=== PATIENT | female | born 2005 | race Hispanic/Latino ===

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

== ENCOUNTER 2024-09-04 06:21 | Emergency (ER) | payer OTHER ==
--- OUTSIDE RECORDS SUMMARY | 2024-09-04 06:25 | XMS REPORT | Continuity of Care Document ---
Author Name Unknown Address [address] [address] [place] [address] [facility] Address [address] [facility] [address] [place] [address] Care Team Providers Care Conveyor Mechanic Name Role Phone Poncho Lobo Primary Care Physician [phone] RADHIKA MCNAMARA Attending Clinician Unavailable RADHIKA MCNAMARA Attending Clinician Unavailable Radhika Mcnamara MD Attending Clinician [phone] Pob, Adc Lab Main Attending Clinician Unavailabl e PAO ALONSO Attending Clinician Unavail able Celeste WHPao FAIRCHILD Attending Clinician + ELEANOR JOHNSON Attending Clinician Unavailable Eleanor Jamison Attending Clinician [phone] BETY GUTIERREZ Attending Clinician Unavailable Poncho Lobo Attending Clinician [phone] PONCHO LOBO Attending Clinician Unavailable Payers Payer Name Policy Type Policy Number Effective Date Expirati on Date Source [employer] [place] [id number] 2024 00:00:00 Problems Condition Name Condition Details Condition Category Status Onset Date Resolution Date Last Treatment Date Treating Clinician Comments Source UTI in UTI in Disease Active 08-04 00:00: 00 Overview: Formattin g of this note might be different from the original. Pending sayra [facility] Supervisio n of high-risk Supervisio n of high-risk Disease Active 07-29 00:00: 00 [facility] Multiparit y Multiparit y Disease Active 07-29 00:00: 00 [facility] Obesity in Obesity in Disease Active 07-29 00:00: 00 [facility] No known active problems No known active problems Disease [facility] Allergies, Adverse Reactions, Alerts Allergy Name Allergy Type Status Severity Reaction(s) Onset Date Inactive Date Treating Clinician Comments Source NO KNOWN ALLERGIE S Drug Class Active [facility] Social History Social Habit Start Date Stop Date Quantity Comments Source ASSERTION 2024-04-26 00:00:00 [facility] Exposure to SARS-CoV-2 (event) Unable to assess [facility] of Social function 2024-08-19 00:00:00 2024-08-19 00:00:00 [facility] Alcoholic beverage intake 2024-08-19 00:00:00 2024-08-19 00:00:00 Ex-drinker (finding) [facility] Alcohol intake 2014-03-18 00:00:00 2014-03-18 00:00:00 [facility] Sex assigned at 2003 00:00:00 2005 00:00:00 [facility] Smoking Status Start Date Stop Date Source Never smoked tobacco [facility] Medications Ordered Medication Name Filled Medication Name Start Date Stop Date Current Medication? Ordering Clinician Indication Dosage Frequency Signature (SIG) Comments Components Source Nitrofurant oin&Nit. Macrocryst 100 mg capsule 2023-11 00:00: 00 Yes [id number] 100mg Take 1 capsule by mouth in the morning and 1 capsule in the evening. [facility] vit,calc76/ iron/folic (PNV 29-1 ORAL) 2023-11 14:48: 16 Yes Take by mouth. [facility] Nitrofurant oin&Nit. Macrocryst (MACROBID) 100 mg capsule 08-04 00:00: 00 08-15 04:59 :00 Yes [id number] 100mg Take 1 capsule by mouth in the morning and 1 capsule in the evening. Do all this for 10 days. [facility] NaCl 0.9% (NS) bolus infusion 1,000 mL 2020-11 23:30: 00 11-08 00:25 :00 No 1000mL at 999 mL/hr, 1,000 mL, IV Infusion, ONCE, 1 dose, On Sun11/07/21 at 1730, STAT [facility] acetaminoph en (TYLENOL) tablet 1,000 mg 2020-11 23:30: 00 11-07 23:30 :00 No 1000mg 1,000 mg, Oral, ONCE, 1 dose, On Sun11/07/21 at 1730, Routine [facility] proMETHazin e (PHENERGAN) 25 mg in NaCl 0.9% (NS) 50 mL piggyback 2020-11 23:30: 00 11-07 22:32 :00 No 25mg 25 mg, IV Piggyback, ONCE, 1 dose, On Sun11/07/21 at 1730, 50 mL [facility] No known medications 2020-11 16:10: 41 No [facility] No known medications No Un hua [facility] No known medications No Un hua [facility] Vital Signs Vital Name Observation Time Observation Value Comments S beth Systolic blood pressure 2024-08-19 19:35:00 121 mm[Hg] [facility] Diastolic blood pressure 2024-08-19 19:35:00 84 mm[Hg] [facility] Heart rate 2024-08-19 19:35:00 108 /min [facility] Respiratory rate 2024-08-19 19:35:00 18 /min [facility] Body height 2024-08-19 19:35:00 167.6 cm [facility] Body weight 2024-08-19 19:35:00 90.266 kg [facility] BMI 2024-08-19 19:35:00 32.12 kg/m2 [facility] Systolic blood pressure 2024-07-29 14:20:00 105 mm[Hg] [facility] Diastolic blood pressure 2024-07-29 14:20:00 76 mm[Hg] [facility] Heart rate 2024-07-29 14:20:00 101 /min [facility] Body temperature 2024-07-29 14:20:00 36.78 Peri [facility] Body height 2024-07-29 14:20:00 167.6 cm [facility] Body weight 2024-07-29 14:20:00 89.177 kg [facility] BMI 2024-07-29 14:20:00 31.73 kg/m2 [facility] Systolic blood pressure 2021-11-08 01:37:00 103 mm[Hg] [facility] Diastolic blood pressure 2021-11-08 01:37:00 57 mm[Hg] [facility] Heart rate 2021-11-08 01:37:00 77 /min [facility] Respiratory rate 2021-11-08 01:37:00 21 /min [facility] Oxygen saturation in Arterial blood by Pulse oximetry 2021-11-08 01:37:00 100 /min [facility] Body temperature 2021-11-07 21:42:00 37.28 Peri [facility] Body weight 2021-11-07 21:42:00 70.035 kg [facility] Procedures Procedure Date / Time Performed Performing Clinicia n Source POCT URINALYSIS W/O SPECIFIC GRAVITY 2024-08-19 00:00:00 Radhika Mcnamara [facility] POCT URINALYSIS W/O SPECIFIC GRAVITY 2024-07-29 14:15:00 Pao Alonso [facility] POCT TEST 2024-07-29 14:14:00 Stanley Alonso [facility] URINALYSIS 2021-11-08 00:33:00 Eleanor Johnson [facility] LIPASE 2021-11-07 22:30:00 Eleanor Johnson [facility] COMP. METABOLIC PANEL (56550) 2021-11-07 22:30:00 Eleanor Johnson [facility] CBC WITH DIFF 2021-11-07 22:30:00 Eleanor Johnson [facility] RAPID INFLUENZA A/B 2021-11-07 22:30:00 Eleanor Johnson [facility] COVID-19 (ID NOW RAPID TESTING) 2021-11-07 22:30:00 Eleanor Johnson [facility] CONSENT/REFUSAL FOR DIAGNOSIS AND TREATMENT 2021-11-07 21:40:18 Doctor Unassigned, [place] [facility] XR SCOLIOSIS SURVEY 2 2021-05-27 20:32:47 Yamil [facility] XR SCOLIOSIS SURVEY 2 2021-05-27 20:32:47 Yamil [facility] NOTICE OF PRIVACY PRACTICES 2021-05-27 19:48:34 Doctor Unassigned, [place] [facility] CONSENT/REFUSAL FOR DIAGNOSIS AND TREATMENT 2021-05-27 19:48:21 Doctor Unassigned, [place] [facility] ASSIGNMENT OF BENEFITS 2021-05-27 19:48:00 Docto r Unassigned, [place] [facility] Encounters Start Date/Time End Date/Time Encounter Type Admission Type Attending [facility] Care Facility Care Department Encounter ID Source 2024-09-02 00:00:00 2024-09-02 16:28:54 Telephone AdumRadhika [facility] 1..114 350.1.13.10 4.2.7.2.686 [id number] [facility] 2024-08-28 00:00:00 2024-08-28 15:16:41 Telephone AdumRadhika [facility] 1.84.114 350.1.13.10 4.2.7.2.686 [id number] [facility] 2024-08-28 14:30:00 2024-08-28 14:30:00 Outpatient R RADHIKA MCNAMARA [facility] [id number] [facility] 2024-08-28 00:00:00 2024-08-28 13:58:15 Telephone AdRadhika reyes [facility] [id number] 350.1.13.10 4.2.7.2.686 [id number] [facility] 2024-08-27 16:00:00 2024-08-27 16:15:00 Whitesmith Visit Pob, Adc Lab Main AdumRadhika Derek Pob, Adc Lab Main [facility] [id number] 350.1.13.10 4.2.7.2.686 [id number] [facility] 2024-08-27 16:00:00 2024-08-27 16:00:00 Outpatient R RADHIKA MCNAMARA [facility] [id number] [facility] 2024-08-26 00:00:00 2024-08-26 06:00:37 Case Management ManoloRadhika reyes [facility] [id number] 350.1.13.10 4.2.7.2.686 [id number] [facility] 2024-08-20 15:00:00 2024-08-20 15:00:00 Outpatient R ADRADHIKA REYES [facility] [id number] [facility] 2024-08-19 14:30:00 2024-08-19 15:18:14 Outpatient R ADRADHIKA REYES [facility] [id number] [facility] 2024-08-19 14:30:00 2024-08-19 15:18:14 Initial Visit Radhika Mcnamara [facility] 1..114 350.1.13.10 4.2.7.2.686 [id number] [facility] 2024-08-04 00:00:00 2024-08-04 15:42:51 Telephone Pao Alonso [facility] 1..114 350.1.13.10 4.2.7.2.686 [id number] [facility] 2024-07-31 00:00:00 2024-07-31 15:11:28 Abstract Pao Alonso [facility] 1..114 350.1.13.10 4.2.7.2.686 [id number] [facility] 2024-07-29 09:00:00 2024-07-29 10:32:45 Outpatient R PAO ALONSO [facility] [id number] [facility] 2024-07-29 09:00:00 2024-07-29 10:32:45 Initial Visit Pao Alonso [facility] 1..114 350.1.13.10 4.2.7.2.686 [id number] [facility] 2024-07-04 14:30:00 2024-07-04 14:30:00 Outpatient R RADHIKA MCNAMARA [facility] [id number] [facility] 2024-07-01 00:00:00 2024-07-01 13:39:11 Telephone Radhika Mcnamara [facility] 1..114 350.1.13.10 4.2.7.2.686 [id number] [facility] 2021-11-07 15:44:00 2021-11-07 20:30:00 Emergency X ELEANOR JOHNSON [facility] ERT [id number] [facility] 2021-11-07 15:44:00 2021-11-07 20:30:00 Emergency Eleanor Johnson [facility] [id number] 350.1.13.10 4.2.7.2.686 [id number] [facility] 2021-10-03 10:30:00 2021-10-03 10:30:[address] [facility] [id number] [facility] 2021-08-15 10:45:00 2021-08-15 10:45:[address] [facility] [id number] [facility] 2021-05-27 15:13:09 2021-05-27 23:59:00 [facility] [id number] 350.1.13.10 4.2.7.2.686 [id number] [facility] 2021-05-27 14:45:00 2021-05-27 15:12:00 Hospital Encounter Yamil [facility] [id number] 350.1.13.10 4.2.7.2.686 [id number] [facility] 2021-05-27 00:00:00 2021-05-27 15:12:00 Outpatient R YAMIL [facility] [id number] [facility] Results Test Description Test Time Test Comments Results Result Co mments Source [facility] [id number] 14:15:00* Test Item Value Reference Range Interpretation Comme nts POCT PREG (test code = 1605) Positive On board controls acceptable with C Line (test code = 3574) Yes POCT PREG LOT # (test code = 3575) POCT PREG TEST DATE ( test code = 3576) [facility] Ur[facility] w/o Specific [id number] 14:15:00* Test Item Value Reference Range Interpretation Comme nts POCT PH U (test code = 3254) 5 mg/dl 5-8 POCT U LEUK EST (test code = 3263) 1 Negative - Negative POCT U NIT (test code = 3262) negative Negative - Negati ve POCT U PROT (test code = 3259) trace Negative - Negat silvina POCT U GLU (test code = 3256) negative Negative - Negati ve POCT U KETONE (test code = 3258) negative Negative - Neg ative POCT U BLD (test code = 3257) trace Negative - Negati ve [facility]. METABOLIC PANEL (34482)2021-11-07 23:07:15* Test Item Value Reference Range Interpretation Comme nts NA (test code = 8330490779) 136 mmol/L 135-145 K (test code = 8057137475) 3.7 mmol/L 3.5-5.0 CL (test code = 6082659544) 105 mmol/L 98-108 CO2 TOTAL (test code = 9016163278) 20 mmol/L 23-31 L AGAP (test code = 2625545313) 2-16 BUN (test code = 1899527619) 5 mg/dL 7-23 L GLUCOSE (test code = 6718852453) 99 mg/dL 70-110 CREATININE (test code = 0881117024) 0.40 mg/dL 0.50-1.04 L TOTAL BILI (test code = 4913427392) 0.6 mg/dL 0.1-1.1 CALCIUM (test code = 8175133858) 9.1 mg/dL 8.6-10.6 T PROTEIN (test code = 7676187760) 8.0 g/dL 6.3-8.2 ALBUMIN (test code = 7849846659) 4.5 g/dL 3.5-5.0 ALK PHOS (test code = 5028531764) 56 U/L 34-122 ALTv (test code = 1742-6) 17 U/L 5-35 AST(SGOT) (test code = 4098643609) 21 U/L 13-40 eGFR (test code = 0298868716) mL/min/1.73m2 THEODORE (test code = THEODORE) Association of Glomerular Filtration Rate (GFR) and Staging of Kidney Disease* + --+ --+ ------+| GFR (mL/min/1.73 m2) ?| With Kidney Damage ?| ?Without Kidney Damage+ --------+ --------+ +| ?>90 ?| ?Stage one ?| ? Normal ?+ ---+ ---+ -------+| ?60-89 ?| ?Stage two ?| ? Decreased GFR ? + --+ --+ ------+| ?30-59 ?| ?Stage three ?| ? Stage three ? + --+ --+ ------+| ?15-29 ?| ?Stage four ? | ? Stage four ?+ ---+ ---+ -------+| ?<15 (or dialysis) ? ?| ?Stage five ? | ? Stage five ?+ ---+ ---+ -------+ *Each stage assumes the associated GFR [...] imaging tests). Lab Interpretation (test code = 73653-3) [facility]normal [facility] 23:06:54* Test Item Value Reference Range Interpretation Comme nts LIPASE (test code = 9260131451) 105 U/L 0-220 Lab Interpretation (test cod e = 79275-3) Normal [facility] WITH [id number] 22:47:49* Test Item Value Reference Range Interpretation Comme nts WBC (test code = 6690-2) See_Comment [Automated [employer]] The system which generated this result transmitted reference range: 4.50 - 13.50 10*3/?L. The reference range was not used to interpret this result as normal/abnormal. RBC (test code = 789-8) See_Comment [Automated [employer]] The system which generated this result transmitted reference range: 4.10 - 5.10 10*6/?L. The reference range was not used to interpret this result as normal/abnormal. HGB (test code = 718-7) 13.8 g/dL 12.0-16.0 HCT (test code = 4544-3) 39.9 % 36.0-45.0 MCV (test code = 787-2) 85.6 fL 78.0-95.0 MCH (test code = 785-6) 29.6 pg 26.0-32.0 MCHC (test code = 786-4) 34.6 g/dL 32.0-36.0 RDW-SD (test code = 66620-3) 39.1 fL 38.5-49.0 RDW-CV (test code = 788-0) 12.5 % 11.5-14.0 PLT (test code = 777-3) See_Comment [Automated [employer]] The system which generated this result transmitted reference range: 135 - 361 10*3/?L. The reference range was not used to interpret this result as normal/abnormal. MPV (test code = 13029-0) 11.7 fL 9.4-13.3 NRBC/100 WBC (test code = 9971637685) See_Comment [Automated [employer]] The system which generated this result transmitted reference range: 0.0 - 10.0 /100 WBCs. The reference range was not used to interpret this result as normal/abnormal. NRBC x10^3 (test code = 2865262792) <0.01 See_Comment [Automated [employer]] The system which generated this result transmitted reference range: 10*3/?L. The reference range was not used to interpret this result as normal/abnormal. GRAN MAT (NEUT) % (test code = 770-8) 73.0 % IMM GRAN % (test code = 9001403851) 0.30 % LYMPH % (test code = 736-9) 15.6 % MONO % (test code = 5905-5) 10.4 % EOS % (test code = 713-8) 0.0 % BASO % (test code = 706-2) 0.7 % GRAN MAT x10^3(ANC) (test code = 2132367532) 4.48 10*3/uL 1.50-10.30 IMM GRAN x10^3 (test code = 7249949061) <0.03 0.00-0.06 LYMPH x10^3 (test code = 731-0) 0.96 10*3/uL 0.70-7.40 MONO x10^3 (test code = 742-7) 0.64 10*3/uL 0.00-0.50 H EOS x10^3 (test code = 711-2) <0.03 0.00-0.40 BASO x10^3 (test code = 704-7) 0.04 10*3/uL 0.00-0.10 Lab Interpretation (test code = 48451-5) Abnormal [facility] [id number] 20:57:24 FINDINGS/IMPRESSION: Mild dextroscoliosis of the thoracolumbar spine with a Camejo angle of 14degrees. There is a normal thoracic kyphosis and lumbar lordosis. No listhesis. Thevertebral bodies and disc spaces are normal in height and alignment. 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 Preliminary Report Dictated by Resident: Matthew Martini MD., have reviewed this study and agree with theabove report.EXAM: XR SCOLIOSIS SURVEY 2 VW HISTORY: Back pain ? COMPARISON: None. Njmb, Radiant Results Inft User - 05/27/2021 3:58 [...] reviewed this study and agree with theabove report.[facility] Notes Date/Time Note Provider Source 2024-09-02 16:27:21 Received [facility] results via fax. Stamped and will be scanned/uploaded into pt's chart. Charley Quarles RN 09/02/2024 4:27 PM [facility] 2024-08-28 15:16:52 Spoke with patient, name and verified. Patient informed of Panorama results including gender and verbalized understanding. T [facility] 2024-08-28 15:16:04 Spoke with patient, name and verified. Patient informed of Panorama results including gender and verbalized understanding. T Alysha Espinal MA [facility] 2024-08-28 14:56:30 Pt would like a call back to discuss recent results. T [facility] 2024-08-28 13:56:54 Images from the original note were not included. Little results received via fax. Voicemail left for patient to return call. Can also view results on [employer]. Will discuss results at next visit. Results signed, will scan and upload a copy to [employer]. [facility] 2024-08-27 16:00:00 Images from the original note were not included. Venipuncture collection performed by clean technique on the left anticubitus. Total of 1 attempts were made. Slight pressure and a bandage/dressing were applied to the site(s). The patient experienced no complications. The following specimens were processed according to instructions and sent to [facility] laboratories per lab order on 08/19/24: LT BLUE SST RED LAV PPT DK GREEN (LiHep) DK GREEN (SodH) FERNÁNDEZ DK BLUE (K2) DK BLUE (S) ACD Blood Culture NIPT/NTD [facility] - [employer] 2024-08-19 14:30:00 Age: [age] year old GA: 18w3d New OB Visit Magalis Ferrer is a at 18w3 by LMP c/w early scans presents for Initial OB visit today, a transfer of care from [facility].. Denies vaginal bleeding, abdominal pain or cramps. Reports quickening Assessment/Plan Supervision of high risk in second trimester (primary encounter diagnosis) 18 weeks gestation of Discussed do's and don'ts of , safe foods, safe medications. NOB folder given We discussed course, labs, aneuploidy and genetic carrier screening and ultrasounds. Expectations for weight gain this include 20 pounds. Exercise in discussed and encouraged. aneuploidy options were reviewed including NIPT: cFDNA test and 2nd trimester QUAD screen. The benefits and short falls of these screening tests were reviewed. Also discussed diagnostic tests: CVS vs amniocentesis. She opted for NIPT with [employer] genetic carrier screening Reviewed Zika virus precautions .Discussed about COVID-19/flu precautions. Social distancing, frequent hand washings, signs/symptoms for testing and to follow CDC recommendations discussed. Vaccinations in : RSV, Flu, COVID and Tdap I discussed the call schedule and that I deliver here at [facility]. I discussed that I have two partners, Dr. Aguilar and Dr. Luevano and that they may deliver her or take care of her during her . I discussed that at [facility] we do not have a NICU, and that high risk pregnancies or deliveries less than 36 weeks will be transferred to [place]. All questions were answered. precautions reviewed Reviewed labs and the ordered outstanding labs Encouraged to call if have any additional questions or concerns. Plan: POCT Urinalysis w/o Specific [place], VZV Antibody Screen, Urine Culture, Alpha Fetoprotein-Maternal Ser, CONSULT MATERNAL MEDICINE ULTRASOUND Multiple Gestation: No, Urine Culture Urinary tract infection in mother during second trimester of - SAYRA today Plan: Urine Culture, Urine Culture Obesity in Reviewed the risks associated obesity in - GDM, GTHN, Macrosomia, IUGR, labor dsytocia which could lead to with increased risk of wound breakdown. Discussed appropriate weight gain for her (BMI 20 lbs) healthy eating with regular moderate intensity exercise Return to clinic in 4 weeks or PRN Radhika Mcnamara MD 08/19/2024 5:56 PM [facility] 2024-08-04 15:42:09 Pt informed of results and new orders. Verbalized understanding. [facility] Rajwinder Fofana [facility] 2024-08-04 08:54:20 Attempted to call patient, no answer, left vm. [facility] Jerica Sykes [facility] 2024-08-04 07:05:56 Please notify the patient of UTI, meds have been sent to the pharmacy. Please advise the patient on good perineal hygiene, drinking plenty of water, and completing the entire course of treatment. [facility] 2024-07-01 13:33:41 Scheduled new ob for 07/04/2024 Pt states she is 12wks has not seen a dr. Yet. LMP 05/05 did not know exact date. [facility]"
--- NOTE | 2024-09-04 09:08 | ER ---
Nurse's Notes [facility] Name: Apple Lucas Age: 19 yrs Sex: Female : 2005 Arrival Date: 09/04/2024 Time: 06:21 Bed 5 Private MD: Diagnosis: Decreased movements Presentation: 09/04 06:42 Chief complaint: Patient states: I haven't felt my baby move in a few hours. vc1 Coronavirus screen: Client denies travel out of the [place] in the last 14 days. At this time, the client does not indicate any symptoms associated with coronavirus-19. Ebola Screen: Patient negative for fever greater than or equal to 101.5 degrees Fahrenheit, and additional compatible Ebola Virus Disease symptoms Patient denies exposure to infectious person. Patient denies travel to an Ebola-affected area in the 21 days before illness onset. No symptoms or risks identified at this time. Initial Sepsis Screen: Does the patient meet any 2 criteria? No. Patient's initial sepsis screen is negative. Does the patient have a suspected source of infection? No. Patient's initial sepsis screen is negative. Risk Assessment: Do you want to hurt yourself or someone else? Patient reports no desire to harm self or others. Onset of symptoms was September 04, 2024. 06:42 Method Of Arrival: Ambulatory vc1 06:42 Acuity: JIM 5 vc1 Triage Assessment: 06:45 General: Appears in no apparent distress. comfortable, well groomed, well developed, vc1 well nourished, Behavior is calm, cooperative, appropriate for age. Pain: Denies pain. EENT: No deficits noted. No signs and/or symptoms were reported regarding the EENT system. Neuro: Level of Consciousness is awake, alert, obeys commands, Oriented to person, place, time, situation, Appropriate for age. Cardiovascular: Capillary refill < 3 seconds Patient's skin is warm and dry. Respiratory: Airway is patent Respiratory effort is even, unlabored, Respiratory pattern is regular, symmetrical. GI: No deficits noted. No signs and/or symptoms were reported involving the gastrointestinal system. : No deficits noted. No signs and/or symptoms were reported regarding the genitourinary system. Derm: Skin is intact, is healthy with good turgor, Skin is dry, Skin is normal, Skin temperature is warm. Musculoskeletal: Circulation, motion, and sensation intact. Range of motion: intact in all extremities. 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 - Infectious Disease History:: Denies. - Social history:: Smoking status: Patient denies any tobacco usage or history of. - Family history:: not pertinent. Screenin:47 [facility] ED Fall Risk Assessment (Adult) History of falling in the last 3 months, vc1 including since admission No falls in past 3 months (0 pts) Confusion or Disorientation No (0 pts) Intoxicated or Sedated No (0 pts) Impaired Gait No (0 pts) Mobility Assist Device Used No (0 pt) Altered Elimination No (0 pt) Score/Fall Risk Level 0 - 2 = Low Risk Oriented to surroundings, Maintained a safe environment, Educated pt \T\ family on fall prevention, incl call for assistance when getting out of bed. Abuse screen: Denies threats or abuse. Nutritional screening: No deficits noted. Tuberculosis screening: No symptoms or risk factors identified. Assessment: 06:45 General: Appears in no apparent distress. Behavior is calm, cooperative. Pain: Denies kj2 pain. Neuro: Level of Consciousness is awake, alert, obeys commands, Oriented to person, place, time, situation. Cardiovascular: Patient's skin is warm and dry. Respiratory: Airway is patent Respiratory effort is even, unlabored. GI: No signs and/or symptoms were reported involving the gastrointestinal system. : No signs and/or symptoms were reported regarding the genitourinary system. 07:14 General: Appears in no apparent distress. Behavior is calm, cooperative, appropriate ap3 for age. Pain: Denies pain. Neuro: Level of Consciousness is awake, alert, obeys commands, Oriented to person, place, time, situation. Cardiovascular: Patient's skin is warm and dry. Respiratory: Airway is patent Respiratory effort is even, unlabored. 08:42 Reassessment: Patient and/or family updated on plan of care and expected duration. Pain ap3 level reassessed. Patient is alert, oriented x 3, equal unlabored respirations, skin warm/dry/pink. Vital Signs: 06:42 BP 107 / 64; Pulse 85; Resp 18; Temp 98.9; Pulse Ox 100% ; Weight 90.72 kg; Height 5 vc1 ft. 5 in. ; Pain 0/10; 06:46 BP 122 / 78; Pulse 88; Resp 18; Pulse Ox 100% on R/A; kj2 06:42 Body Mass Index 33.28 (90.72 kg, 165.1 cm) vc1 06:42 Pain Scale: Adult vc1 Vitals: 06:49 Heart Tones 160 BPM. vc1 [place] Coma Score: 06:45 Eye Response: spontaneous(4). Motor Response: obeys commands(6). Verbal Response: sp4 oriented(5). Total: 15. ED Course: 06:23 Patient arrived in ED. jj6 06:31 Alissa Higuera, RN is Primary Nurse. kj2 06:35 Abel Ross MD is Attending Physician. sp4 06:45 Triage completed. vc1 06:46 Arm band placed on right wrist. vc1 06:47 Patient has correct armband on for positive identification. Bed in low position. Call kj2 light in reach. Provided Education on: CALL LIGHT. 07:03 Report given to LILLIANA FERMIN and LILLIANA PORTER. kj2 07:08 US OB Limited In Process Unspecified. EDMS 07:14 Sujatha Alatorre RN is Primary Nurse. ap3 07:14 No provider procedures requiring assistance completed. ap3 09:16 Patient did not have IV access during this emergency room visit. ss Administered Medications: No medications were administered Medication: 06:49 VIS not applicable for this client. vc1 Outcome: 09:07 Discharge ordered by . sd2 09:16 Discharged to home ambulatory, ss 09:16 Condition: good 09:16 Discharge instructions given to patient, Instructed on discharge instructions, follow up and referral plans. Demonstrated understanding of instructions, follow-up care, 09:16 Patient left the ED. ss Signatures: Dispatcher [facility]Re[facility] MexicoNadya Evans RN RN ss Sujatha Alatorre, RN RN ap3 Nikole Watters jj6 Steph Barney, RN RN vc1 Elle Willis MD MD sd2 Abel Ross MD MD sp4 Alissa Higuera, RN RN kj2
--- NOTE | 2024-09-04 09:08 | EDPHYS ---
Physician Documentation [facility] Name: Apple Lucas Age: 19 yrs Sex: Female : 2005 Arrival Date: 09/04/2024 Time: 06:21 Bed 5 Private MD: ED Physician Abel Ross HPI: 09/04 06:35 This 19 yrs old Female presents to ER via Unassigned with complaints of EST 21 sp4 WKS GESTATION, PT HASN'T FELT BABY MOVE FOR 5+ HOURS. 06:45 19-year-old female who is 20 weeks 5 days EGA, -0-1-1 presents with reported sp4 decreased movements for the past 5 hours . Patient would like to make sure that her is intact. 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 - Infectious Disease History:: Denies. - Social history:: Smoking status: Patient denies any tobacco usage or history of. - Family history:: not pertinent. ROS: 06:45 Constitutional: Negative for fever, chills, and weight loss, positive for decreased sp4 movements 06:45 All other systems are negative, Exam: 06:45 Constitutional: This is a well developed, well nourished patient who is awake, alert, sp4 and in no acute distress. Head/Face: Normocephalic, atraumatic. Eyes: Pupils equal round and reactive to light, extra-ocular motions intact. Lids and lashes normal. Conjunctiva and sclera are not injected. Cornea within normal limits. Periorbital areas with no swelling, redness, or edema. ENT: Nares patent. No nasal discharge, no septal abnormalities noted. Tympanic membranes are normal and external auditory canals are clear. Oropharynx with no redness, swelling, or masses, exudates, or evidence of obstruction, uvula midline. Mucous membranes moist. Neck: Trachea midline, no thyromegaly or masses palpated, and no cervical lymphadenopathy. Supple, full range of motion without nuchal rigidity, or vertebral point tenderness. Chest/axilla: Normal chest wall appearance and motion. Nontender with no deformity. No lesions are appreciated. Cardiovascular: Regular rate and rhythm with a normal S1 and S2. No gallops, murmurs, or rubs. Normal PMI, no JVD. No pulse deficits. Respiratory: Lungs have equal breath sounds bilaterally, clear to auscultation and percussion. No rales, rhonchi or wheezes noted. No increased work of breathing, no retractions or nasal flaring. Abdomen/GI: Soft, with normal bowel sounds. No distension or tympany. No guarding or rebound. No evidence of tenderness throughout. Back: No spinal tenderness. No costovertebral tenderness. Skin: Warm, dry with normal turgor. Normal color with no rashes, no lesions, and no evidence of cellulitis. MS/ Extremity: Pulses equal, no cyanosis. Neurovascular intact. Full, normal range of motion. Neuro: Awake and alert, GCS 15, oriented to person, place, time, and situation. Cranial nerves II-XII grossly intact. Motor strength 5/5 in all extremities. Sensory grossly intact. Psych: Awake, alert, with orientation to person, place and time. Behavior, mood, and affect are within normal limits Vital Signs: 06:42 BP 107 / 64; Pulse 85; Resp 18; Temp 98.9; Pulse Ox 100% ; Weight 90.72 kg; Height 5 vc1 ft. 5 in. ; Pain 0/10; 06:46 BP 122 / 78; Pulse 88; Resp 18; Pulse Ox 100% on R/A; kj2 06:42 Body Mass Index 33.28 (90.72 kg, 165.1 cm) vc1 06:42 Pain Scale: Adult vc1 [place] Coma Score: 06:45 Eye Response: spontaneous(4). Motor Response: obeys commands(6). Verbal Response: sp4 oriented(5). Total: 15. MDM: 06:45 Differential diagnosis: dysmenorrhea, endometriosis, ovarian cyst. Data reviewed: vital sp4 signs, nurses notes. ED course: Heart tones 160 . 07:13 Medical Screening Exam initiated sd2 07:22 Transition of care: After a detail discussion of the patient's case, care is sp4 transferred to Elle Willis MD. 09:05 Counseling: I had a detailed discussion with the patient and/or guardian regarding the sd2 historical points, exam findings, and any diagnostic results supporting the discharge/admit diagnosis, lab results, radiology results, the need for outpatient follow up, to return to the emergency department if symptoms worsen or persist or if there are any questions or concerns that arise at home. ED course: Pt is feeling well. OB US given verbal read as negative from radiology. Pt is comfortable with plan for dc and outpatient follow up. Verbalizes understanding of strict return precautions.. 09/04 06:37 Order name: US OB Limited sp4 Administered Medications: No medications were administered Disposition Summary: 09/04/24 09:07 Discharge Ordered Problem: new sd2 Symptoms: have improved sd2 Condition: Stable sd2 Diagnosis - Decreased movements sd2 Followup: sd2 - With: Private Physician - When: 1 - 2 days - Reason: Recheck today's complaints, Continuance of care, Re-evaluation by your physician Discharge Instructions: - Discharge Summary Sheet sd2 Forms: - Medication Reconciliation Form sd2 - Antibiotic Education sd2 - Prescription Opioid Use sd2 - Patient Portal Instructions sd2 - Leadership Thank You Letter sd2 Signatures: Dispatcher [employer] Steph Up, LILLIANA RN vc1 Elle Willis MD MD sd2 Abel Ross MD MD sp4
--- NOTE | 2024-09-04 11:21 | RAD REPORT ---
EXAM:OB Limited . CLINICAL HISTORY: with abdominal pain. 21 weeks EGA TECHNIQUE: Limited OB ultrasound performed. FINDINGS: Single live intrauterine fetus is present with heart rate of 153 bpm. movement was seen by the alkylation operator during the study. Centimeters posterior grade, 1-2. Estimated gestational age 21 weeks 0 days. Amniotic fluid volume subjectively normal. Cervix appears closed. IMPRESSION: Single live 21 week fetus as detailed.
[2024-09-04 15:06] VITALS: TEMP 98.9; O2SAT 100
[2024-09-04 15:10] VITALS: BP 122/78
== END 2024-09-04 09:16 | disposition home or self-care (01) ==
LOC: ER 06:21
DX: O36.8120 Decreased fetal movements, second trimester, not applicable or unspecified (principal); Z3A.20 20 weeks gestation of pregnancy
CPT/HCPCS: 76815; 99283